=== PATIENT | male | born 1985 | race Hispanic/Latino ===

== ENCOUNTER 2019-01-12 15:44 | Emergency (ER) | payer SELFPAY ==
[2019-01-12] MEDS ORDERED: Ketorolac Tromethamine 30 MG/ML VIAL ONE (16:10)
--- NOTE | 2019-01-12 16:16 | RAD ---
THREE VIEWS LEFT FOOT: 01/12/19 HISTORY: Stepped on nail yesterday with pain. AP, lateral and oblique views left foot is obtained. Three views left foot demonstrate no evidence of radiopaque foreign bodies in the soft tissues. No ev idence of acute left foot fractures or bony lesions seen. IMPRESSION: Unremarkable three views left foot. POS: [facility]
== END 2019-01-12 16:33 | disposition home or self-care (01) ==
LOC: ERS 15:44
DX: S91.332A Puncture wound without foreign body, left foot, initial encounter (principal); E11.9 Type 2 diabetes mellitus without complications; W22.8XXA Striking against or struck by other objects, initial encounter
CPT/HCPCS: 96372; J1885